=== PATIENT | male | born 1980 | race Caucasian/White ===

== ENCOUNTER 2018-07-12 01:43 | Emergency (ER) | payer SELFPAY ==
[2018-07-12 01:51] VITALS: RESP 20
--- NOTE | 2018-07-12 03:52 | C.PDOC ---
History Of Present Illness 38 year old male presents to the ER with a complaint of cough and pleuritic chest pain that began 1 hour [employer] [employer]EN[employer]. Patient states he has had a cough for the past few days but today had pain to the mid chest when coughing. Denies SOB, dizziness, fever, palpitations, abdominal pain, nausea, or diaphoresis.No recent prolonged travel, no recent immobility state, or known coagulable state. Time Seen by Provider: 07/12/18 02:30 Chief Complaint (Nursing): Chest Pain History Per: Patient History/Exam Limitations: no limitations Onset/Duration Of Symptoms: Hrs (1) Current Symptoms Are (Timing): Still Present Associated Symptoms: denies: Nausea, Dyspnea, Diaphoresis Exacerbating Factors: Other (coughing) Alleviating Factors: None Recent travel outside of the [place]: No Past Medical History Reviewed: Historical Data, Nursing Documentation, Vital Signs Vital Signs: Last Vital Signs Temp 97.9 F 07/12/18 01:47 Pulse 97 H 07/12/18 01:47 Resp 20 07/12/18 01:47 BP 119/78 07/12/18 01:47 Pulse Ox 100 07/12/18 01:47 Family History: States: Unknown Family Hx - Social History Hx Alcohol Use: No Hx Substance Use: No - Immunization History Hx Tetanus Toxoid Vaccination: No Hx Influenza Vaccination: No Hx Pneumococcal Vaccination: No Review Of Systems Constitutional: Negative for: Fever Cardiovascular: Negative for: Palpitations Respiratory: Positive for: Cough, Pleuritic Pain. Negative for: Shortness of Breath Gastrointestinal: Negative for: Nausea, Abdominal Pain Neurological: Negative for: Dizziness Physical Exam - Physical Exam Appears: Non-toxic Skin: Normal Color, Warm, Dry Head: Atraumatic, Normacephalic Eye(s): bilateral: Normal Inspection Oral Mucosa: Moist Neck: Normal, Supple Chest: Symmetrical, Tenderness (Mild midsternal on palpation) Cardiovascular: Rhythm Regular Respiratory: Normal Breath Sounds, No Rales, No Rhonchi, No Wheezing Gastrointestinal/Abdominal: Soft, No Tenderness Neurological/Psych: Oriented x3, Normal Speech ED Course And Treatment ECG: Interpreted By Me, Viewed By Me (and DR Martin) ECG Rhythm: Sinus Rhythm (at 91) ECG Interpretation: Normal, No Acute Changes O2 Sat by Pulse Oximetry: 100 (Room air) Pulse Ox Interpretation: Normal Progress Note: CXR ordered, results were negative. Motrin administered. Patient is resting comfortably in the ER in no acute distress, no longer having chest pain and does not have any associated SOB or palpitations, vitals are stable, symptoms appear to be musculoskeletal in nature and not cardiac related, will discharge home with Rx and instructions to follow up with PMD. Disposition - Disposition Referrals: [facility] [Outside] Disposition: HOME/ ROUTINE Disposition Time: 04:39 Condition: STABLE Additional Instructions: Take medications as directed Follow up in clinic Return to ER if worse Prescriptions: Benzonatate [Tessalon Perles] 200 mg PO TID #14 sgl Ibuprofen [Motrin] 600 mg PO Q6H #20 tab Instructions: Pleuritic Chest Pain (DC) Forms: [email or web address] (Portuguese) - Clinical Impression Clinical Impression: Upper respiratory infection, Pleuritic pain - PA / ARCHEOLOGY PROFESSOR / Resident Statement MD/DO has reviewed & agrees with the documentation as recorded. - Scribe Statement The provider has reviewed the documentation as recorded by the Scribe Subhash Griggs All medical record entries made by the Scribe were at my direction and personally dictated by me. I have reviewed the chart and agree that the record accurately reflects my personal performance of the history, physical exam, medical decision making, and the department course for this patient. I have also personally directed, reviewed, and agree with the discharge instructions and disposition.
[2018-07-12 04:33] VITALS: BP 107/65; PULSE 83; TEMP 98.6
[2018-07-12 04:41] VITALS: O2SAT 100
--- NOTE | 2018-07-12 09:27 | RAD ---
Chest x-ray two views HISTORY: Cough and pain. COMPARISON: None available. Findings: No focal infiltrate or effusion. Heart size within normal limits. Impression: No focal infiltrate or effusion.
--- NOTE | 2018-07-13 17:35 | CARD ---
APPROVED REPORT Date of service: 07/12/2018 EKG Measurement Heart [id number] <Conclusion> Normal sinus rhythm with sinus arrhythmia Normal ECG
== END 2018-07-12 05:00 | disposition home or self-care (01) ==
LOC: C.ER 01:43
DX: J06.9 Acute upper respiratory infection, unspecified (principal); R07.81 Pleurodynia